=== PATIENT | female | born 1965 | race Caucasian/White ===

== ENCOUNTER 2019-12-16 14:12 | Outpatient (CLI) | payer OTHER ==
[2019-12-17 12:29] LABS: SARS-CoV-2 MS2 Positive; SARS-CoV-2 N Gene Negative; SARS-CoV-2 S Gene Negative; SARS-CoV-2 by NAA Not Detected (NotDetected); SARS-CoV-2 orf1ab Negative
== END 2019-12-16 14:13 | disposition home or self-care (01) ==
LOC: LABBT 14:12
PROVIDERS: ATTEND Ophthalmology Retina Specialist
DX: H33.22 Serous retinal detachment, left eye (principal); Z20.828 Contact with and (suspected) exposure to other viral communicable diseases
CPT/HCPCS: 87635; U0003

== ENCOUNTER 2019-12-19 06:07 | Day surgery (SDC) | payer BC ==
[2019-12-18 15:22] VITALS: BMI 32.8
[2019-12-19] MEDS ORDERED: Phenylephrine 2.5% Ophth Soln 5 ML BOT ONE (06:23)
[2019-12-19] MEDS ORDERED: Cyclopentolate 1% Opth Drop 2 ML BOT ONE (06:23)
[2019-12-19] MEDS ORDERED: Fluorouracil 100 MG, Enoxaparin Sodium 25 MG, EPINEPHrine 0.3 MG in Ophthalmic Irrigati... IRR SCH (06:23)
[2019-12-19] MEDS ORDERED: Midazolam HCl 2 mg/2 ml Vial ONE (06:31)
[2019-12-19] MEDS ORDERED: Fentanyl 100 MCG/2 ML VIAL ONE (06:31)
[2019-12-19] MEDS ORDERED: Lidocaine 4% PF 5 ML AMP ONE (10:56)
[2019-12-19] MEDS ORDERED: PROPOFOL 200 MG/20 ML VIAL ONE (10:56)
[2019-12-19] MEDS ORDERED: Triamcinolone 40 MG/ML VIAL ONE (10:56)
[2019-12-19] MEDS ORDERED: Lidocaine 1% PF 5 ML VIAL ONE (10:56)
[2019-12-19] MEDS ORDERED: Maxitrol 0.1% Opth Oint 3.5 GM TUBE ONE (10:56)
[2019-12-19] MEDS ORDERED: CEFAZOLIN 1 GM VIAL ONE (10:56)
[2019-12-19] MEDS ORDERED: Enoxaparin Sodium 30 MG/0.3 ML SYRINGE ONE (10:56)
[2019-12-19] MEDS ORDERED: Bupivacaine PF 0.75% SDV 10 ML ONE (10:56)
--- NOTE | 2019-12-20 13:18 | OP ---
DATE OF PROCEDURE: 12/19/2019 PREOPERATIVE DIAGNOSIS: Rhegmatogenous retinal detachment, left eye. POSTOPERATIVE DIAGNOSIS: Rhegmatogenous retinal detachment, left eye. PROCEDURES PERFORMED: Pars plana vitrectomy and retinal detachment repair, left eye. ANESTHESIA: Local with monitored anesthesia care. DESCRIPTION OF PROCEDURE: The patient identified in the preop holding area. Appropriate informed consent for the planned surgical procedure on the left eye had been obtained. The patient was transported to the operative suite. Appropriate cardiopulmonary monitoring was established. Local anesthesia was obtained using retrobulbar modified Van Lint lid block using 50:50 mixture of 4% lidocaine, 0.75% bupivacaine. The patient was prepped and draped in usual sterile manner for ophthalmic surgery, left eye. Lid speculum was placed in the left eye. A 25-gauge trocar was placed through conjunctiva and sclera superotemporally, inferotemporally, and superonasally. Infusion line was placed inferotemporally. Light pipe vitreous cutter inserted to the eye. Core vitrectomy was performed. Attention was turned to the retinal periphery and a tear was noted at the 9 o'clock position. Vitreous base was trimmed back using wide field viewing system and scleral depression. Posterior drainage retinotomy was created superior to the nerve and complete air-fluid exchange was performed. A 360 laser was placed using Endolaser delivery device. A 28% sulfur hexafluoride gas was infused into the eye. Trocars were removed. The eye was noted to retain pressure well. Retrobulbar Kenalog and subconjunctival Ancef were placed. Antibiotic ointment was placed. Eye was patched and shielded. The patient was taken to postoperative recovery unit in good condition having suffered no immediate perioperative complications. The patient was instructed to keep patch and shield on, avoid lifting or bending. Followup appointment with Dr. Gil. Job ID: [id number]
== END 2019-12-19 08:45 | disposition home or self-care (01) ==
LOC: SDC 06:07
PROVIDERS: ATTEND Ophthalmology Retina Specialist
PROC: 08T53ZZ Resection of Left Vitreous, Percutaneous Approach (ICD-10-PCS; principal; 2019-12-19)
DX: H33.012 Retinal detachment with single break, left eye (principal)
CPT/HCPCS: 67025; J0171; J0690; J1650; J2001; J2250; J2704; J3010; J3301; J3490; J9190

== ENCOUNTER 2020-01-13 07:59 | Outpatient (CLI) | payer BC, OTHER ==
[2020-01-14 14:57] LABS: SARS-CoV-2 MS2 Positive; SARS-CoV-2 N Gene Negative; SARS-CoV-2 S Gene Negative; SARS-CoV-2 by NAA Not Detected (NotDetected); SARS-CoV-2 orf1ab Negative
== END 2020-01-13 08:00 | disposition home or self-care (01) ==
LOC: LABBT 07:59
PROVIDERS: ATTEND Ophthalmology Retina Specialist
DX: H35.342 Macular cyst, hole, or pseudohole, left eye (principal); Z20.828 Contact with and (suspected) exposure to other viral communicable diseases
CPT/HCPCS: 87635; U0003

== ENCOUNTER 2020-01-16 05:53 | Day surgery (SDC) | payer BC ==
[2020-01-16] MEDS ORDERED: Fluorouracil 100 MG, Enoxaparin Sodium 25 MG, EPINEPHrine 0.3 MG in Ophthalmic Irrigati... IRR SCH (06:00)
[2020-01-16] MEDS ORDERED: Phenylephrine 2.5% Ophth Soln 5 ML BOT ONE (06:18)
[2020-01-16] MEDS ORDERED: Cyclopentolate 1% Opth Drop 2 ML BOT ONE (06:18)
[2020-01-16] MEDS ORDERED: PROPOFOL 20 ML ONE (06:34)
[2020-01-16] MEDS ORDERED: Midazolam HCl 2 mg/2 ml Vial ONE (06:34)
[2020-01-16] MEDS ORDERED: Fentanyl 100 MCG/2 ML VIAL ONE (06:34)
[2020-01-16] MEDS ORDERED: Maxitrol 0.1% Opth Oint 3.5 GM TUBE ONE (10:04)
[2020-01-16] MEDS ORDERED: Lidocaine 4% PF 5 ML AMP ONE (10:04)
[2020-01-16] MEDS ORDERED: CEFAZOLIN 1 GM VIAL ONE (10:04)
[2020-01-16] MEDS ORDERED: Bupivacaine PF 0.75% SDV 10 ML ONE (10:04)
[2020-01-16] MEDS ORDERED: Indocyanine Green 25 MG/10 ML VIAL ONE (10:04)
[2020-01-16] MEDS ORDERED: Lidocaine 1% PF 5 ML VIAL ONE (10:04)
[2020-01-16] MEDS ORDERED: Triamcinolone 40 MG/ML VIAL ONE (10:04)
--- NOTE | 2020-01-17 14:14 | OP ---
DATE OF PROCEDURE: 01/16/2020 PREOPERATIVE DIAGNOSIS: Macular hole, left eye. POSTOPERATIVE DIAGNOSIS: Macular hole, left eye. PROCEDURE PERFORMED: Pars plana vitrectomy, internal limiting membrane peel, left eye. ANESTHESIA: Local with monitored anesthesia care. DESCRIPTION OF PROCEDURE: Patient was identified in the preoperative holding area. Appropriate informed consent for the planned surgical procedure on the left eye had been obtained. Patient was transported to the operative suite. Appropriate cardiopulmonary monitoring was established. Local anesthesia obtained using retrobulbar modified Van Lint lid block using 50:50 mixture of 4% lidocaine and 0.75% bupivacaine. Patient was prepped and draped in usual sterile manner for ophthalmic surgery. Left eye lid speculum was placed in left eye. A 25-gauge trocar was placed in the conjunctiva and sclera superotemporally, inferotemporally, and supranasally. Infusion line was placed inferotemporally. Light pipe and vitreous cutter inserted to the eye. Core vitrectomy was performed. Indocyanine green dye was infused on the posterior pole x3 and a dense epiretinal membrane covering the entire posterior pole was identified. It was difficult to visualize and peel, but total membrane release was obtained. Complete air-fluid exchange was performed with 10 minutes being allowed for fluid to drain posteriorly. 28% sulfur hexafluoride gas was infused into the eye. Trocars were removed and all 3 sclerotomies were suture closed with 6-0 plain gut suture. Retrobulbar Kenalog and sequential Ancef were placed. Antibiotic ointment was placed. Eye was patched and shielded. The patient taken to postop recovery unit in good condition and subsequently no immediate perioperative complications. The patient was instructed to keep patch and shield on, avoid lifting or bending. Followup in the morning with Dr. Gil. Job ID: [id number]
== END 2020-01-16 09:19 | disposition home or self-care (01) ==
LOC: SDC 05:53
PROVIDERS: ATTEND Ophthalmology Retina Specialist
PROC: 08T53ZZ Resection of Left Vitreous, Percutaneous Approach (ICD-10-PCS; principal; 2020-01-16)
PROC: 08NF3ZZ Release Left Retina, Percutaneous Approach (ICD-10-PCS; principal; 2020-01-16)
DX: H35.342 Macular cyst, hole, or pseudohole, left eye (principal); Z79.899 Other long term (current) drug therapy
CPT/HCPCS: 67025; J0171; J0690; J1650; J2001; J2250; J2704; J3010; J3301; J3490; J9190